=== PATIENT | male | born 1975 | race Caucasian/White ===

== ENCOUNTER 2019-12-27 15:32 | Emergency (ER) | payer BC, SELFPAY ==
[~2019-12-27] VITALS: Ht 167.6 cm; Wt 93.0 kg
[~2019-12-27 15:32] MED LIST: A/B OTIC15 ML; BICARSIM80 M1 PO; LIPI10 PO; OMEPRAZOLE D/R20 M1 PO
[2019-12-27 15:33] VITALS: BP 145/98; Ht 167.6 cm; Wt 93.0 kg
== END 2019-12-27 18:47 | disposition home or self-care (01) ==
LOC: ED 15:32
DX: U07.1 COVID-19 (principal); K21.9 Gastro-esophageal reflux disease without esophagitis
CPT/HCPCS: Q0092